=== PATIENT | female | born 1980 | race Caucasian/White ===

== ENCOUNTER 2018-11-14 10:56 | Inpatient (IN) | payer OTHER ==
[~2018-11-14] VITALS: Ht 147.3 cm; Wt 62.1 kg
[2018-11-14] MEDS ORDERED: PRENATAL TABLE1 EAC2 PO (11:39)
== END 2018-12-02 19:04 | disposition home or self-care (01) | DRG 807 ==
LOC: LDR 10:56 → OB/GYN 11-30 13:22
PROVIDERS: ADMIT Obstetrics & Gynecology
PROC: 4A1HXCZ Monitoring of Products of Conception, Cardiac Rate, External Approach (ICD-10-PCS; 2018-11-14)
PROC: BY4CZZZ Ultrasonography of Second Trimester, Single Fetus (ICD-10-PCS; 2018-11-14)
PROC: 10E0XZZ Delivery of Products of Conception, External Approach (ICD-10-PCS; principal; 2018-11-30)
DX: O60.22X0 Term delivery with preterm labor, second trimester, not applicable or unspecified (principal); Z37.0 Single live birth; F43.0 Acute stress reaction; F43.12 Post-traumatic stress disorder, chronic; O42.012 Preterm premature rupture of membranes, onset of labor within 24 hours of rupture, second trimester; O99.342 Other mental disorders complicating pregnancy, second trimester; F41.8 Other specified anxiety disorders; Z3A.25 25 weeks gestation of pregnancy